=== PATIENT | male | born 1960 | race Caucasian/White ===

== ENCOUNTER 2020-03-01 06:21 | Outpatient (CLI) | payer MEDICARE, OTHER ==
[2020-03-01 12:20] LABS: Hemoglobin 14.5 g/dL (14.0-18.0); Mean Corpuscular Hemoglobin 32.2 pg (27.0-31.0); Mean Corpuscular Volume 97.6 fL (78.0-98.0); Mean Platelet Volume 7.8 fL (7.4-10.4); Platelet Count 256 thou/uL (130-400); RBC Distribution Width 11.7 % (11.5-14.5); Red Blood Cell (RBC) Count 4.51 mill/uL (4.70-6.10); White Blood Cell (WBC) Count 6.7 thou/uL (4.8-10.8)
[2020-03-01 12:45] LABS: Anion Gap 11 mmol/L (10-20); BUN (Urea Nitrogen) 10 mg/dL (8.4-25.7); Calc. Creatinine Clearance 0 mL/min (70-130); Calcium 8.8 mg/dL (7.8-10.44); Carbon Dioxide 26 mmol/L (23-31); Chloride 102 mmol/L (98-107); Estimated GFR-MDRD Greater than 90; Glucose 103 mg/dL (80-115); Potassium 4.1 mmol/L (3.5-5.1); Sodium 135 mmol/L (136-145)
[2020-03-02 13:09] LABS: SARS-CoV-2 MS2 Positive; SARS-CoV-2 N Gene Negative; SARS-CoV-2 S Gene Negative; SARS-CoV-2 orf1ab Negative
== END 2020-03-01 06:22 | disposition home or self-care (01) ==
LOC: LABBT 06:21
PROVIDERS: ATTEND Neurological Surgery
DX: Z01.818 Encounter for other preprocedural examination (principal); Z11.59 Encounter for screening for other viral diseases; M54.16 Radiculopathy, lumbar region
CPT/HCPCS: 80048; 85027; U0003; 87635; 93005; 93010

== ENCOUNTER 2020-03-03 05:38 | Day surgery (SDC) | payer MEDICARE ==
[2020-02-27 12:23] VITALS: BMI 27.4
[2020-03-03] MEDS ORDERED: Fentanyl 100 MCG/2 ML VIAL ONE ×5 (07:18→10:05)
[2020-03-03] MEDS ORDERED: SUGAMMADEX SODIUM 200 MG/2 ML VIAL ONE (08:36)
[2020-03-03] MEDS ORDERED: Ondansetron HCl/PF 4 MG/2 ML Vial IVP PRN (08:42)
[2020-03-03] MEDS ORDERED: Promethazine HCl 25 MG/ML VIAL IM PRN (08:42)
[2020-03-03] MEDS ORDERED: HYDROmorphone 2 MG/ML VIAL SLOW IVP PRN (08:42)
[2020-03-03] MEDS ORDERED: Promethazine HCl 25 MG/ML VIAL SLOW IVP PRN (08:42)
[2020-03-03] MEDS ORDERED: PACU-Morphine 4MG/ML VIAL SLOW IVP PRN (08:42)
[2020-03-03] MEDS ORDERED: Morphine Sulfate 2 MG/ML SYRINGE SLOW IVP PRN (08:42)
--- NOTE | 2020-03-03 09:49 | OP ---
DATE OF PROCEDURE: 03/03/2020 MACHINE MOLDER SQUEEZE: Esther Wilson PA-C. PROCEDURE PERFORMED: Left L3-L4 laminectomy, facetectomy, and diskectomy; interbody arthrodesis; intervertebral biomechanical device; local morselized autograft; demineralized bone matrix; posterolateral arthrodesis; pedicle screw instrumentation, L3-L4. DESCRIPTION OF PROCEDURE: The patient was brought to the operating room and intubated. He was rolled in the prone position on gel-filled chest rolls. The previous incision was reopened and the L3-L4 lesion was exposed and identified by x-ray. We performed a left L3-L4 laminectomy, facetectomy, and diskectomy and completely decompressed the neural elements. The disk itself was entirely removed. The bony endplates decorticated for the purpose of arthrodesis. An appropriate-sized intervertebral biomechanical PEEK device was then brought in the field. It was filled with demineralized bone matrix local morselized autograft and tapped into place securely at L3-L4. Next, pedicle screws were placed at left L3 and left L4 using lateral fluoroscopic guidance and the positioning was confirmed by x-ray. The jared was secured between the screws, connected by nuts, which were final tightened. The wound was then extensively irrigated and MAC hemostasis was secured. Combination of demineralized bone matrix, local morselized autograft was laid over the lamina and posterolateral surfaces for the purpose of arthrodesis. Vancomycin powder was applied and the wound was then closed in anatomic layers. Job ID: [id number]
[2020-03-03] MEDS ORDERED: Morphine 4 MG/ML VIAL ONE (09:58)
[2020-03-03] MEDS ORDERED: Morphine 2 MG/ML SYRINGE ONE (10:30)
[2020-03-03] MEDS ORDERED: Rocuronium Bromide 10 MG/ML (10ML VIAL) ONE (12:42)
[2020-03-03] MEDS ORDERED: PROPOFOL 200 MG/20 ML VIAL ONE (12:42)
[2020-03-03] MEDS ORDERED: Ketorolac Tromethamine 30 MG/ML VIAL ONE (12:42)
[2020-03-03] MEDS ORDERED: Ondansetron PF 4 MG/2 ML Vial ONE (12:42)
[2020-03-03] MEDS ORDERED: Lidocaine 1% PF 5 ML VIAL ONE (12:42)
[2020-03-03] MEDS ORDERED: EPHEDRINE 25 MG/5 ML SYRINGE ONE (12:42)
== END 2020-03-03 11:35 | disposition home or self-care (01) ==
LOC: SDC 05:38
PROVIDERS: ATTEND Neurological Surgery
PROC: 0SG00AJ Fusion of Lumbar Vertebral Joint with Interbody Fusion Device, Posterior Approach, Anterior Column, Open Approach (ICD-10-PCS; principal; 2020-03-03)
PROC: 0ST20ZZ Resection of Lumbar Vertebral Disc, Open Approach (ICD-10-PCS; 2020-03-03)
DX: M54.16 Radiculopathy, lumbar region (principal); M48.061 Spinal stenosis, lumbar region without neurogenic claudication; I25.10 Atherosclerotic heart disease of native coronary artery without angina pectoris; I10 Essential (primary) hypertension; E78.5 Hyperlipidemia, unspecified; G89.29 Other chronic pain; Z87.891 Personal history of nicotine dependence; Z79.02 Long term (current) use of antithrombotics/antiplatelets; Z79.82 Long term (current) use of aspirin; Z79.899 Other long term (current) drug therapy; Z95.1 Presence of aortocoronary bypass graft; Z95.5 Presence of coronary angioplasty implant and graft; Z98.1 Arthrodesis status
CPT/HCPCS: 20930; 20936; 22612; 22840; 22853; 76000; C1768; J0690; J1885; J2001; J2270; J2405; J2704; J3010; J3370

== ENCOUNTER 2020-03-17 09:32 | Outpatient (CLI) | payer MEDICARE ==
--- NOTE | 2020-03-17 09:48 | RAD ---
EXAM: XR Lumbar Spine 2 Or 3 View PROVIDED CLINICAL HISTORY: Lumbar radiculopathy. Post back surgery. Follow-up evaluation. COMPARISON: None FINDINGS: There are 5 nonrib-bearing lumbar-type vertebral bodies. Postoperative changes are present with evide nce of unilateral left-sided pedicular screws and posterior rods transfixing the L4-5 level. Intradiscal prosthesis is noted in place. No hardware complication is identified. Skin clips are seen posteriorly. Osteophytes are scattered within the lumbar spine and lower thoracic spine. The vertebral body heights are within normal limits. There is suggestion of trace grade 1 anterolisthesis of L5 on S1. No additional level of subluxation is seen. Postoperative changes related to median sternotomy are partially imaged. IMPRESSION: 1. Postoperative changes related to posterior fusion at the L4-5 level. 2. Question of trace grade 1 anterolisthesis of L5 on S1. However, this level is not well evaluated d ue to overlying iliac bone.
== END 2020-03-17 09:33 | disposition home or self-care (01) ==
LOC: TBSIIMAG 09:32
PROVIDERS: ATTEND Neurological Surgery
DX: M54.16 Radiculopathy, lumbar region (principal); Z98.1 Arthrodesis status
CPT/HCPCS: 72100